=== PATIENT | female | born 1965 | race Caucasian/White ===

== ENCOUNTER 2018-12-19 00:30 | Emergency (ER) | payer SELFPAY ==
[2018-12-19] MEDS ORDERED: NORMAL SALINE 1000 ML 1,000 ML IV ONE (00:52)
[2018-12-19] MEDS ORDERED: PROMETHAZINE HCL INJ 25 MG/1 ML VIAL IM ONE ×2 (00:53→03:55)
--- NOTE | 2018-12-19 01:17 | ER Document Report ---
ED General - General Chief Complaint: Nausea Stated Complaint: VOMITING Time Seen by Provider: 12/19/18 00:43 Notes: Patient is a pleasant 53-year-old female presents with complaints of nausea vomiting diarrhea. Says started today after she had several drinks of wine. She says she drinks 1 or 2 drinks of wine but had a little bit more tonight. She does have history of gastric bypass surgery. She says she solid for dinner. She also had some chocolate earlier and said she was vomiting up the chocolate. No blood in emesis. No blood in stool. She had previous cholecystectomy. No other complaints at this time. Denies any significant abdominal pain. - Related Data Allergies/Adverse Reactions: Sulfa (Sulfonamide Antibiotics) Allergy (Verified 12/19/18 02:58) meperidine [From Demerol] Adverse Reaction (Verified 12/19/18 02:58) Past Medical History - Social History Smoking Status: Unknown if Ever Smoked Frequency of alcohol use: Occasional Drug Abuse: None Family History: Reviewed & Not Pertinent Review of Systems - Review of Systems Notes: My Normal Review Basic REVIEW OF SYSTEMS: CONSTITUTIONAL : Denies fever, chills, or sweats. Denies recent illness. RESPIRATORY: Denies cough, cold, or chest congestion. Denies shortness of breath, difficulty breathing, or wheezing. GASTROINTESTINAL: Denies abdominal pain. Nausea vomiting and diarrhea GENITOURINARY: Denies difficulty urinating, painful urination, burning, frequency, or blood in urine. MUSCULOSKELETAL: Denies neck or back pain or joint pain or swelling. SKIN: Denies rash or skin lesions. NEUROLOGICAL: Denies altered mental status or loss of consciousness. Denies headache. Denies weakness or paralysis or loss of use of either side. Denies problems with gait or speech. Denies sensory or motor loss. ALL OTHER SYSTEMS REVIEWED AND NEGATIVE. Physical Exam - Vital signs Vitals: Temp Pulse Resp BP Pulse Ox 98.3 F 78 16 123/71 98 12/19/18 00:31 12/19/18 00:31 12/19/18 00:31 12/19/18 00:12/19/18 00:31 - Notes Notes: General Appearance: Well nourished, alert, cooperative, no acute distress, no obvious discomfort. Active dry heaving Vitals: reviewed, See vital signs table. Head: no swelling or tenderness to the head Eyes: PERRL, EOMI, Conjuctiva clear Mouth: No decreasd moisture Lungs: No wheezing, No rales, No rhonci, No accessory muscle use, good air exchange bilaterally. Heart: Normal rate, Regular rythm, No murmur, no rub Abdomen: Normal BS, soft, No rigidity, left upper quadrant abdominal tenderness palpation, no guarding, no rebound, no abdominal masses, no organomegaly Extremities: good pulses in all extremities, no swelling or tenderness in the extremities, no edema. Skin: warm, dry, appropriate color, no rash Neuro: speech clear, oriented x 3, normal affect, responds appropriately to questions. Course - Re-evaluation Re-evalutation: 12/19/18 03:26 Patient's x-ray just shows evidence of mild ileus. Patient looks well. She is tolerating p.o. now. She has no abdominal pain. Feel that she is safe to be discharged home. I will discharge home with Phenergan and Zofran. I strongly encouraged her to have a low threshold to return to ER if she has recurrent vomiting, fevers, abdominal pain, bloody stools, or if she feels that she is worsening in any way. I encouraged her to drink clear liquids to slowly transition to a bland diet over the next 24 hours. Patient agrees with plan and will be discharged home. Dictation of this chart was performed using voice recognition software; therefore, there may be some unintended grammatical errors. - Vital Signs Vital signs: Temp Pulse Resp BP Pulse Ox 98.3 F 78 16 123/71 98 12/19/18 00:31 12/19/18 00:31 12/19/18 00:31 12/19/18 00:31 12/19/18 00:31 - Laboratory Result Diagrams: 12/19/18 01:16 12/19/18 01:16 Laboratory results interpreted by me: 12/19/18 12/19/18 01:16 01:16 Seg Neutrophils % 81.2 H Monocytes % 2.5 L Sodium 134.9 L Potassium 3.1 L Glucose 120 H Discharge - Discharge Clinical Impression: Vomiting and diarrhea Condition: Good Disposition: HOME, SELF-CARE Additional Instructions: We are happy that you are feeling improved. You still may have some recurrent nausea over the next 24 hours. Please take the Phenergan or Zofran as prescribed for the nausea. The Phenergan you can take as 1 suppository rectally every 6 hours and the Zofran you can take 1 tablet dissolved in the mouth every 4 hours. Please return to the ER if you have intractable vomiting, bloody stools, blood in her emesis, fevers, abdominal pain, or if you feel that you are worsening in any way. Please drink clear liquids and slowly progress to a bland diet over the next 24 hours. Prescriptions: Ondansetron [Zofran Odt 4 mg Tablet] 1 tab PO Q4H PRN #10 tab.rapdis PRN Reason: For Nausea/Vomiting Promethazine HCl [Phenergan 25 mg Supp.rect] 1 supp TN Q6H #12 supp.rect Forms: Return to Work
[2018-12-19 01:33] LABS: ABSOLUTE LYMPHOCYTES (AUTO) 1.5 10^3/uL (0.5-4.7); ABSOLUTE MONOCYTES (AUTO) 0.2 10^3/uL (0.1-1.4); ABSOLUTE NEUT (AUTO) 7.8 10^3/uL (1.7-8.2); BASOPHILS % (AUTO) 0.4 % (0-2); EOSINOPHILS % (AUTO) 0.2 % (0-6); HEMATOCRIT 39.3 % (36.0-47.0); HEMOGLOBIN 13.8 g/dL (12.0-15.5); LYMPHOCYTES % (AUTO) 15.7 % (13-45); MEAN CORPUSCULAR HEMOGLOBIN 30.9 pg (27.0-33.4); MEAN CORPUSCULAR HGB CONC 35.3 g/dL (32.0-36.0); MEAN CORPUSCULAR VOLUME 88 fl (80-97); MONOCYTES % (AUTO) 2.5 % (3-13); PLATELET COUNT 240 10^3/uL (150-450); RED BLOOD COUNT 4.48 10^6/uL (3.72-5.28); RED CELL DISTRIBUTION WIDTH 12.8 % (11.5-14.0); SEGMENTED NEUTROPHILS % (AUTO) 81.2 % (42-78); TOTAL CELLS COUNTED % (AUTO) 100 %; WHITE BLOOD COUNT 9.6 10^3/uL (4.0-10.5)
[2018-12-19] MEDS ORDERED: ONDANSETRON HCL INJ/PF 4 MG/2 ML SDV IV ONE (01:46)
[2018-12-19 01:49] LABS: ALANINE AMINOTRANSFERASE 20 U/L (9-52); ALBUMIN 4.2 g/dL (3.5-5.0); ALKALINE PHOSPHATASE 85 U/L (38-126); ANION GAP 13 (5-19); ASPARTATE AMINO TRANSFERASE 25 U/L (14-36); BILIRUBIN,DIRECT 0.2 mg/dL (0.0-0.4); BILIRUBIN,TOTAL 0.3 mg/dL (0.2-1.3); BLOOD UREA NITROGEN 13 mg/dL (7-20); CALCIUM 9.3 mg/dL (8.4-10.2); CARBON DIOXIDE 22 mmol/L (22-30); CHLORIDE 100 mmol/L (98-107); GLUCOSE 120 mg/dL (75-110); LIPASE 113.5 U/L (23-300); POTASSIUM 3.1 mmol/L (3.6-5.0); SODIUM 134.9 mmol/L (137-145); TOTAL PROTEIN 7.1 g/dL (6.3-8.2)
[2018-12-19] MEDS ORDERED: POTASSIUM CHLORIDE 10 MEQ CAPSULE.ER PO ONE (01:56)
--- NOTE | 2018-12-19 02:09 | RADIOLOGY REPORT (SQ) ---
EXAM DESCRIPTION: XR ABDOMEN SUPINE AND ERECT WITH CHEST (ABD ACUTE SERIES) COMPLETED DATE/TME: 12/19/2018 00:52 CLINICAL HISTORY: 53 years, Female, vomiting, previous gastric bypass COMPARISON: None. NUMBER OF VIEWS: TECHNIQUE: LIMITATIONS: None. FINDINGS: There are multiple loops of normal caliber, but gas containing small bowel, possibly small bowel ileus. No evidence of bowel obstruction. No free air. There are surgical clips from a prior cholecystectomy. There is also evidence of prior gastric surgery. There are multiple calcified phleboliths in the pelvis. There are a couple of surgical clips on the right side of the pelvis, possibly dislodged from the right upper quadrant. The chest is unremarkable. IMPRESSION: Possible small bowel ileus. Other findings as described. copyright 2010 [facility] [employer]- All Rights Reserved
[2018-12-19] MEDS ORDERED: ONDANSETRON ODT 4 MG TAB (6 TAB/ER DISP) PO PRN (03:15)
[2018-12-19] MEDS ORDERED: PROMETHAZINE HCL 25 MG SUPP (4 SUPP/ER DISP) PR ONE (03:15)
[2018-12-19] MEDS ORDERED: RINGERS SOLUTION,LACTATED 1,000 ML IV ONE (03:55)
[2018-12-19 04:42] VITALS: BP 122/63
== END 2018-12-19 04:42 | disposition home or self-care (01) ==
LOC: ER 00:30
DX: R11.2 Nausea with vomiting, unspecified (principal); R19.7 Diarrhea, unspecified; K56.7 Ileus, unspecified; R10.812 Left upper quadrant abdominal tenderness; Z98.84 Bariatric surgery status; Z90.49 Acquired absence of other specified parts of digestive tract; Z88.2 Allergy status to sulfonamides
CPT/HCPCS: 99284; 96372; 96361; 96374; 36415; 83690; 85025; 80053; 74022; J3490; J2550; J2405; J7030; J7120

== ENCOUNTER → 2019-12-06 | Outpatient (CLI) | payer OTHER | LOC: OD 15:44 | PROVIDERS: ATTEND Otolaryngology | DX: J30.9 Allergic rhinitis, unspecified (principal) | CPT/HCPCS: 36415; 82785; 86003 ==

== ENCOUNTER → 2020-01-24 | Outpatient (CLI) | payer OTHER | LOC: OD 13:15 → EDSTATUS 01-30 12:00 | PROVIDERS: ATTEND Otolaryngology | DX: Z03.818 Encounter for observation for suspected exposure to other biological agents ruled out (principal) | CPT/HCPCS: 87635; C9803 ==

== ENCOUNTER 2020-02-27 09:29 | Day surgery (SDC) | payer OTHER ==
[~2020-02-27 09:29] MED LIST: FENTANYL CITRATE INJ/PF 100 MCG/2 ML AMPUL ONE; GLYCOPYRROLATE INJ 0.4 MG/2 ML VIAL ONE; LIDOCAINE 2% INJ-PF (100 MG/5 ML) SYRINGE ONE; MIDAZOLAM 2 MG/2 ML INJ ONE; ONDANSETRON HCL INJ/PF 4 MG/2 ML SDV ONE; PROPOFOL INJ 200 MG/20 ML VIAL IV ONE
[2020-02-27] MEDS ORDERED: OXYMETAZOLINE HCL 0.05% NASAL SPRAY 15 ML BOTTLE ONE (10:21)
[2020-02-27] MEDS ORDERED: ACETAMINOPHEN 325 MG TABLET ONE (11:09)
--- NOTE | 2020-02-27 11:12 | Operative Report ---
Operative Report-[facility] Operative Report: Date: 27 February 2020 History: 54-year-old female with a history of eustachian tube dysfunction. Presents today for a BMT T. Informed consent was obtained from the patient Preoperative Diagnosis: 1. Eustachian tube dysfunction Post operative Diagnosis: Same as above Procedure: Bilateral myringotomy with tympanostomy tube placement Surgeon: Hugh Melendez MD, FACS, [facility] Anesthesia: General via mask Procedure: After receiving informed consent from the parents of the patient, the patient is brought to the operating room and placed supine on the operating table. After successful induction via mask, the operating microscope was brought into the field. Under binocular microscopy the right ear was turned superiorly. A properly sized speculum was placed into the external auditory canal. Debris and cerumen were removed. The tympanic membrane was visualized and found to be dull with radial striations. There appeared to be fluid in the middle ear. A myringotomy knife was used to make a radial incision in the anterior inferior quadrant. Middle ear space was dry.. A Lakshmi PE tube was placed in this incision. Otic drops were then placed into the external auditory canal. Attention was then directed to the left ear, where in similar fashion a PE tube was placed into the myringotomy incision. The findings were similar to the right side. The patient was then given back to anesthesia who successfully recovered the patient. The patient was then transferred to the Post Anesthesia Care Unit in stable condition with spontaneous respirations.
== END 2020-02-27 11:51 | disposition home or self-care (01) ==
LOC: SC 09:29
PROVIDERS: ATTEND Otolaryngology
DX: H69.83 Other specified disorders of Eustachian tube, bilateral (principal); J34.2 Deviated nasal septum; J30.9 Allergic rhinitis, unspecified; Z03.818 Encounter for observation for suspected exposure to other biological agents ruled out
CPT/HCPCS: 69436; 87635; J2250; J3010; J2001; J3490; J2405; J2704; C9803; 126